=== PATIENT | male | born 1950 | race Caucasian/White ===

== ENCOUNTER 2017-08-21 09:20 | Emergency (ER) | payer MEDICARE ==
[2017-08-21] MEDS ORDERED: Ketorolac 60 MG/2 ML SDV IM ONE (10:09)
--- NOTE | 2017-08-21 10:11 | EDM.PDOC ---
ED HPI GENERAL MEDICAL PROBLEM - General Chief Complaint: Lower Extremity Injury/Pain Stated Complaint: LEFT LEG PAIN Time Seen by Provider: 08/21/17 10:10 Source of Information: Reports: Patient History Limitations: Reports: No Limitations - History of Present Illness INITIAL COMMENTS - FREE TEXT/NARRATIVE: pt tapped his knee on the table and 2 days later the knee is swollen and there is some redness on each side of the knee. Onset: Gradual Duration: Hour(s): Location: Reports: Lower Extremity, Left Associated Symptoms: Reports: No Other Symptoms left knee Pain Score (Numeric/FACES): 4 - Related Data Allergies Allergy/AdvReac Type Severity Reaction Status Date / Time Penicillins Allergy Hives Verified 08/21/17 09:45 Home Meds: Home Meds . [Unable to Verify Home Med List] 08/21/17 [History] Past Medical History Cardiovascular History: Reports: Hypertension - Past Surgical History Musculoskeletal Surgical History: Reports: Other (See Below) Other Musculoskeletal Surgeries/Procedures:: back surgery Social & Family History - Tobacco Use Smoking Status *Q: Current Every Day Smoker Years of Tobacco use: 40 Packs/Tins Daily: 0.5 - Recreational Drug Use Recreational Drug Use: No Review of Systems - Review of Systems Review Of Systems: See Below Constitutional: Reports: No Symptoms Eyes: Reports: No Symptoms Ears: Reports: No Symptoms Nose: Reports: No Symptoms Mouth/Throat: Reports: No Symptoms Respiratory: Reports: No Symptoms Cardiovascular: Reports: No Symptoms GI/Abdominal: Reports: No Symptoms Musculoskeletal: Reports: Other ( pain and swelling in the left knee. ) Skin: Reports: No Symptoms ED EXAM, GENERAL - Physical Exam Exam: See Below Free Text/Narrative:: pt has redness on each side of the knee-left. He is very tender and the knee swollen Exam Limited By: No Limitations General Appearance: Alert, Anxious, Moderate Distress Ears: Normal TMs Nose: Normal Inspection Throat/Mouth: Normal Inspection Head: Atraumatic Neck: Normal Inspection Respiratory/Chest: No Respiratory Distress Cardiovascular: Regular Rate, Rhythm Extremities: Other (left knee is swollen and has obvious fluid in it. The knee was xrayed which revealed arthritis but no acute injury. the knee was cleansed an buvocine was used 70 cc of nonbloody fluid was obtained. This was sent for cell count and culture. The was a very rare bacteria. ) Neurological: Alert Course - Vital Signs Last Recorded V/S: Last Vital Signs Temp 36.7 C 08/21/17 09:52 Pulse 73 08/21/17 09:52 Resp 15 08/21/17 09:52 BP 110/44 L 08/21/17 09:52 Pulse Ox 92 L 08/21/17 09:52 - Orders/Labs/Meds Orders: Active Orders 24 hr Category Date Time Status Knee 3V Lt [CR] Stat Exams 08/21/17 10:09 Taken CULTURE BODY FLUID + SMEAR [RM] Stat Lab 08/21/17 11:38 Ordered Labs: Laboratory Tests 08/21/17 Range/Units 11:38 Fluid Type Synovial fluid Fluid WBC 92559 /ul Fluid RBC 1440 /ul Fluid Diff Comment Left knee Fluid Mononuclear Cell 14 % Fl Polymorphonucl Cell 86 % Meds: Medications Discontinued Medications Generic Name Dose Route Start Last Admin Trade Name Freq PRN Reason Stop Dose Admin Bupivacaine HCl 10 ml 08/21/17 10:59 08/21/17 11:16 Sensorcaine-Mpf 0.25% INJECT 08/21/17 11:00 10 ml ONETIME ONE Administration Ceftriaxone Sodium 1 gm/ 0 gm 08/21/17 11:30 08/21/17 11:38 Lidocaine HCl 2.1 ml IM 08/21/17 11:31 1 inj ONETIME ONE Administration Ketorolac Tromethamine 60 mg 08/21/17 10:09 08/21/17 10:14 Toradol IM 08/21/17 10:10 60 mg ONETIME ONE Administration Methylprednisolone Sodium Succinate 40 mg 08/21/17 11:00 08/21/17 11:16 Solu-Medrol IM 08/21/17 11:01 40 mg ONETIME ONE Administration Departure - Departure Time of Disposition: 12:06 Disposition: Home, Self-Care 01 Condition: Fair Clinical Impression: Joint effusion of knee, Skin infection of right knee - Discharge Information Referrals: Kg Stewart MD [Primary Care Provider] - Forms: ED Department Discharge Care Plan Goals: moist warm packs to the left knee followed by a cool pack, keflex 500mg tid for 1 week, norco 5/325 q6h prn for pain, motrin 200mg tid, If further problems see own provider. - My Orders Last 24 Hours: My Active Orders 08/21/17 10:09 Knee 3V Lt [CR] Stat 08/21/17 11:38 CULTURE BODY FLUID + SMEAR [RM] Stat - Assessment/Plan Last 24 Hours: My Active Orders 08/21/17 10:09 Knee 3V Lt [CR] Stat 08/21/17 11:38 CULTURE BODY FLUID + SMEAR [RM] Stat
[2017-08-21] MEDS ORDERED: Bupivacaine 0.25% 10 ML SDV INJECT ONE (10:59)
[2017-08-21] MEDS ORDERED: methylPREDNISolone Sodium Succinate 40 MG/1 ML SDV IM ONE (11:00)
[2017-08-21] MEDS ORDERED: cefTRIAXone 1 GM, Lidocaine 1% 2.1 ML IM ONE ×2 (11:30)
--- NOTE | 2017-08-22 09:14 | CR ---
Knee 3V Lt CLINICAL HISTORY: Pain and swelling FINDINGS: No acute fracture or dislocation is noted. There are no osseous lesions. There is some prom inence of the intercondylar eminence. There is suprapatellar fullness. 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
== END 2017-08-21 12:40 | disposition home or self-care (01) ==
LOC: JP.ED 09:20
DX: M25.461 Effusion, right knee (principal); L08.9 Local infection of the skin and subcutaneous tissue, unspecified; Z88.0 Allergy status to penicillin; F17.210 Nicotine dependence, cigarettes, uncomplicated
CPT/HCPCS: 73562; 87070; 87077; 87186; 87205; 89050; 96372; 99284; J0696; J1885; J2920; J3490; 99283

== ENCOUNTER 2018-06-04 13:17 | Emergency (ER) | payer MEDICARE ==
[2018-06-04] MEDS ORDERED: Lidocaine 2% Jelly 10 ML Urojet MUCMEM ONE (13:43)
[2018-06-04] MEDS ORDERED: Tamsulosin 0.4 MG Cap.ER PO ONE (15:41)
--- NOTE | 2018-06-04 15:43 | EDM.PDOC ---
ED HPI GENERAL MEDICAL PROBLEM - General Chief Complaint: Genitourinary Problem Stated Complaint: UNABLE TO URINATE Time Seen by Provider: 06/04/18 15:43 Source of Information: Reports: Patient History Limitations: Reports: No Limitations - History of Present Illness INITIAL COMMENTS - FREE TEXT/NARRATIVE: pt was up all nite trying to void. He did try about every 2 hours. He arrived here with 2-3 hundred cc in the bladder Onset: Other ( started last nite. The only thing new for meds is that he is using medical [facility]. ) Duration: Hour(s): Associated Symptoms: Reports: No Other Symptoms - Related Data Allergies Allergy/AdvReac Type Severity Reaction Status Date / Time Penicillins Allergy Hives Verified 06/04/18 13:36 Home Meds: Home Meds Cyclobenzaprine [Flexeril] 06/04/18 [History] Furosemide 06/04/18 [History] Gabapentin [Neurontin] 06/04/18 [History] Losartan/Hydrochlorothiazide [Losartan-HCTZ 100-12.5 MG] 06/04/18 [History] Past Medical History Cardiovascular History: Reports: Hypertension - Past Surgical History Musculoskeletal Surgical History: Reports: Other (See Below) Other Musculoskeletal Surgeries/Procedures:: back surgery Social & Family History - Tobacco Use Smoking Status *Q: Current Every Day Smoker Years of Tobacco use: 40 Packs/Tins Daily: 0.5 ED ROS GENERAL - Review of Systems Review Of Systems: See Below Constitutional: Reports: No Symptoms HEENT: Reports: No Symptoms Respiratory: Reports: No Symptoms Cardiovascular: Reports: No Symptoms Endocrine: Reports: No Symptoms GI/Abdominal: Reports: No Symptoms : Reports: No Symptoms Musculoskeletal: Reports: Other (pt has chronic back pain. He recently started medical marajauna for his back. ) Skin: Reports: No Symptoms ED EXAM, RENAL/ - Physical Exam Exam: See Below Text/Narrative:: pt arrived unable to void. He had tried about every 2 hours during the nite. Exam Limited By: No Limitations General Appearance: Alert, Mild Distress Ears: Normal External Exam Nose: Normal Inspection Throat/Mouth: Normal Inspection GI/Abdominal: Other ( bladder scan showed 200-300cc of urine. ) (Male) Exam: Deferred Rectal (Males) Exam: Deferred Back Exam: Normal Inspection Extremities: Normal Inspection Course - Vital Signs Last Recorded V/S: Last Vital Signs Temp 36.7 C 06/04/18 13:42 Pulse 87 06/04/18 13:42 Resp 16 06/04/18 13:42 BP 111/66 06/04/18 13:42 Pulse Ox 95 06/04/18 13:42 - Orders/Labs/Meds Labs: Laboratory Tests 06/04/18 Range/Units 14:10 Urine Color Yellow Urine Appearance Clear Urine pH 6.0 (4.5-8.0) Ur Specific [place] 1.015 (1.008-1.030) Urine Protein Negative (NEGATIVE) mg/dL Urine Glucose (UA) Normal (NEGATIVE) mg/dL Urine Ketones Negative (NEGATIVE) mg/dL Urine Occult Blood Negative (NEGATIVE) Urine Nitrite Negative (NEGAITVE) Urine Bilirubin Negative (NEGATIVE) Urine Urobilinogen Normal (NORMAL) mg/dL Ur Leukocyte Esterase Negative (NEGATIVE) Urine RBC Not seen (0-5) Urine WBC Not seen (0-5) Ur Epithelial Cells Rare Amorphous Sediment Not seen Urine Bacteria Few Urine Mucus Not seen Meds: Medications Discontinued Medications Generic Name Dose Route Start Last Admin Trade Name Xiao PRN Reason Stop Dose Admin Lidocaine HCl 10 ml 06/04/18 13:43 06/04/18 14:10 Xylocaine 2% Jelly MUCMEM 06/04/18 13:44 10 ml ONETIME ONE Administration Tamsulosin HCl 0.4 mg 06/04/18 15:41 Flomax PO 06/04/18 15:42 ONETIME ONE - Re-Assessments/Exams Free Text/Narrative Re-Assessment/Exam: 06/04/18 15:47 araya cath was inserted without difficulty. His urine did not show infectioni Departure - Departure Time of Disposition: 15:40 Disposition: Home, Self-Care 01 Condition: Fair Clinical Impression: Urinary retention - Discharge Information Referrals: Kg Stewart MD [Primary Care Provider] - Forms: ED Department Discharge Care Plan Goals: leg bag, push fluids, flomax .4 1 tab daily. see regular provider Tuesday to have the araya removed
== END 2018-06-04 16:03 | disposition home or self-care (01) ==
LOC: JP.ED 13:17
DX: R33.9 Retention of urine, unspecified (principal); F17.210 Nicotine dependence, cigarettes, uncomplicated; I10 Essential (primary) hypertension; Z88.0 Allergy status to penicillin; Z79.899 Other long term (current) drug therapy
CPT/HCPCS: 51702; 51798; 81001; 99283; A9270

== ENCOUNTER 2019-01-16 11:26 | Emergency (ER) | payer MEDICARE ==
[2019-01-16] MEDS ORDERED: LORazepam 1 MG Tab PO ONE ×2 (12:20→13:20)
--- NOTE | 2019-01-16 12:22 | EDM.PDOCBH ---
ED HPI GENERAL MEDICAL PROBLEM - General Chief Complaint: Gastrointestinal Problem Stated Complaint: HAS NOT EATEN FOR 5 DAYS Time Seen by Provider: 01/16/19 12:10 Source of Information: Reports: Patient, RN Notes Reviewed History Limitations: Reports: Intoxication - History of Present Illness INITIAL COMMENTS - FREE TEXT/NARRATIVE: 68-year-old gentleman presents emergency department today plaint of alcohol withdrawal. He he last consumed alcohol with shots of whiskey and beer this morning at 3 AM he would like to quit drinking he would like to go through withdrawal but he does admit he needs help he has done it a couple of times in the past without being admitted. At this time he has no other complaints, denies any auditory or visual hallucinations denies any seizures Abdomen Pain Score (Numeric/FACES): 4 - Related Data Allergies Allergy/AdvReac Type Severity Reaction Status Date / Time Penicillins Allergy Hives Verified 06/04/18 13:36 Home Meds: Home Meds Gabapentin [Neurontin] 900 mg PO TID 06/04/18 [History] Losartan/Hydrochlorothiazide [Losartan-HCTZ 100-12.5 MG] 1 tab PO DAILY [History] Albuterol [Ventolin HFA] 2 puff INH ASDIRECTED PRN 01/16/19 [History] Aspirin [Ecotrin EC] 325 mg PO DAILY 01/16/19 [History] Furosemide 40 mg PO DAILY 01/16/19 [History] Tamsulosin HCl 0.4 mg PO DAILY 01/16/19 [History] Varenicline Tartrate [Chantix] 1 tab PO ASDIRECTED 01/16/19 [History] Past Medical History HEENT History: Reports: Cataract Cardiovascular History: Reports: Hypertension Respiratory History: Reports: COPD Genitourinary History: Reports: BPH, Chronic Renal Insuffiency, Renal Calculus Musculoskeletal History: Reports: Back Pain, Chronic Neurological History: Reports: Neuropathy, Peripheral Psychiatric History: Reports: Addiction, Depression Hematologic History: Reports: B12 Deficiency, Folic Acid, Other (See Below) Other Hematologic History: thrombocytopenia - Past Surgical History GI Surgical History: Reports: Hernia, Abdominal Neurological Surgical History: Reports: Spinal Fusion Musculoskeletal Surgical History: Reports: Arthroscopic Knee, Other (See Below) Other Musculoskeletal Surgeries/Procedures:: back surgery Social & Family History - Tobacco Use Smoking Status *Q: Current Every Day Smoker Years of Tobacco use: 40 Packs/Tins Daily: 0.5 - Caffeine Use Caffeine Use: Reports: None - Alcohol Use Days Per Week of Alcohol Use: 7 Number of Drinks Per Day: 4 Total Drinks Per Week: 28 - Recreational Drug Use Recreational Drug Use: Yes Recreational Drug Type: Reports: Marijuana/Hashish ED ROS GENERAL - Review of Systems Review Of Systems: See Below Constitutional: Reports: No Symptoms HEENT: Reports: No Symptoms Respiratory: Reports: No Symptoms Cardiovascular: Reports: No Symptoms GI/Abdominal: Reports: No Symptoms Neurological: Reports: No Symptoms Psychiatric: Denies: Hallucinations ED EXAM, BEHAVIORAL HEALTH - Physical Exam Exam: See Below Exam Limited By: No Limitations General Appearance: Alert, WD/WN, No Apparent Distress Respiratory/Chest: No Respiratory Distress, Lungs Clear, Normal Breath Sounds, No Accessory Muscle Use, Chest Non-Tender Cardiovascular: Regular Rate, Rhythm, No Murmur GI/Abdominal: Soft, Non-Tender COURSE, BEHAVIORAL HEALTH COMP - Course Vital Signs: Last Vital Signs Temp 95.5 F 01/16/19 12:00 Pulse 53 L 01/16/19 12:07 Resp 16 01/16/19 12:07 BP 104/61 01/16/19 12:07 Pulse Ox 97 01/16/19 12:07 Orders, Labs, Meds: Laboratory Tests 01/16/19 01/16/19 01/16/19 Range/Units 12:29 12:29 12:29 WBC 4.3 L (4.5-11.0) K/uL RBC 3.65 L (4.30-5.90) M/uL Hgb 12.5 D (12.0-15.0) g/dL Hct 37.2 L (40.0-54.0) % MCV 102 H (80-98) fL MCH 34 H (27-31) pg MCHC 34 (32-36) % Plt Count 126 L (150-400) K/uL Neut % (Auto) 41 (36-66) % Lymph % (Auto) 40 (24-44) % [place] % (Auto) 15 H (2-6) % Eos % (Auto) 3 (2-4) % Baso % (Auto) 1 (0-1) % Sodium 131 L (140-148) mmol/L Potassium 3.9 (3.6-5.2) mmol/L Chloride 95 L (100-108) mmol/L Carbon Dioxide 22 (21-32) mmol/L Anion Gap 17.9 H (5.0-14.0) mmol/L BUN 26 H (7-18) mg/dL Creatinine 1.7 H (0.8-1.3) mg/dL Est Cr Clr Drug Dosing 52.48 mL/min Estimated GFR (MDRD) 41 L (>60) Glucose 102 (74-106) mg/dL Calcium 8.2 L (8.5-10.1) mg/dL Total Bilirubin 0.4 (0.2-1.0) mg/dL AST 49 H (15-37) U/L ALT 36 (12-78) U/L Alkaline Phosphatase 168 H (46-116) U/L Total Protein 6.8 (6.4-8.2) g/dL Albumin 3.2 L (3.4-5.0) g/dL Globulin 3.6 H (2.3-3.5) g/dL Albumin/Globulin Ratio 0.9 L (1.2-2.2) Urine Opiates Screen (NEGATIVE) Ur Oxycodone Screen (NEGATIVE) Urine Methadone Screen (NEGATIVE) Ur Propoxyphene Screen (NEGATIVE) Ur Barbiturates Screen (NEGATIVE) Ur Tricyclics Screen (NEGATIVE) Ur Phencyclidine Scrn (NEGATIVE) Ur Amphetamine Screen (NEGATIVE) U Methamphetamines Scrn (NEGATIVE) Urine MDMA Screen (NEGATIVE) U Benzodiazepines Scrn (NEGATIVE) U Cocaine Metab Screen (NEGATIVE) U Marijuana (THC) Screen (NEGATIVE) Ethyl Alcohol 240 mg/dL 01/16/19 Range/Units 13:19 WBC (4.5-11.0) K/uL RBC (4.30-5.90) M/uL Hgb (12.0-15.0) g/dL Hct (40.0-54.0) % MCV (80-98) fL MCH (27-31) pg MCHC (32-36) % Plt Count (150-400) K/uL Neut % (Auto) (36-66) % Lymph % (Auto) (24-44) % [place] % (Auto) (2-6) % Eos % (Auto) (2-4) % Baso % (Auto) (0-1) % Sodium (140-148) mmol/L Potassium (3.6-5.2) mmol/L Chloride (100-108) mmol/L Carbon Dioxide (21-32) mmol/L Anion Gap (5.0-14.0) mmol/L BUN (7-18) mg/dL Creatinine (0.8-1.3) mg/dL Est Cr Clr Drug Dosing mL/min Estimated GFR (MDRD) (>60) Glucose (74-106) mg/dL Calcium (8.5-10.1) mg/dL Total Bilirubin (0.2-1.0) mg/dL AST (15-37) U/L ALT (12-78) U/L Alkaline Phosphatase (46-116) U/L Total Protein (6.4-8.2) g/dL Albumin (3.4-5.0) g/dL Globulin (2.3-3.5) g/dL Albumin/Globulin Ratio (1.2-2.2) Urine Opiates Screen Negative (NEGATIVE) Ur Oxycodone Screen Negative (NEGATIVE) Urine Methadone Screen Negative (NEGATIVE) Ur Propoxyphene Screen Negative (NEGATIVE) Ur Barbiturates Screen Negative (NEGATIVE) Ur Tricyclics Screen Negative (NEGATIVE) Ur Phencyclidine Scrn Negative (NEGATIVE) Ur Amphetamine Screen Negative (NEGATIVE) U Methamphetamines Scrn Negative (NEGATIVE) Urine MDMA Screen Negative (NEGATIVE) U Benzodiazepines Scrn Negative (NEGATIVE) U Cocaine Metab Screen Negative (NEGATIVE) U Marijuana (THC) Screen Presumptive positive H (NEGATIVE) Ethyl Alcohol mg/dL Medications Discontinued Medications Generic Name Dose Route Start Last Admin Trade Name Freq PRN Reason Stop Dose Admin Lorazepam 1 mg 01/16/19 12:20 01/16/19 12:31 Ativan PO 01/16/19 12:21 1 mg ONETIME ONE Administration Lorazepam 2 mg 01/16/19 13:20 01/16/19 13:28 Ativan PO 01/16/19 13:21 2 mg ONETIME ONE Administration Departure - Departure Time of Disposition: 13:56 Disposition: DC/Tfer to Inpt Rehab Fac 62 Condition: Fair Clinical Impression: ETOH abuse - Discharge Information Referrals: PCP,None [Primary Care Provider] - Forms: ED Department Discharge Additional Instructions: Please report to [facility] for further treatment Sepsis Event Note - Evaluation Sepsis Screening Result: No Definite Risk - Focused Exam Vital Signs: Vital Signs Temp Pulse Resp BP Pulse Ox 12/10/19 12:07 53 L 16 104/61 97 01/16/19 12:00 95.5 F 68 18 119/60 97 01/16/19 11:40 95.5 F 68 18 119/60 97 Date Exam was Performed: 01/16/19 Time Exam was Performed: 13:54 - Assessment/Plan Plan: Assessment Acuity = acute Site and laterality = alcohol abuse and intoxication Etiology = EtOH Manifestations = none Location of injury = Home Lab values = platelets low at 126 consistent with thrombocytopenia, sodium low at 131 consistent hyponatremia creatinine elevated 1.7 consistent chronic renal failure stage T3a albumin low at 3.2 consistent with hypoalbuminemia alcohol level at 240 consistent with intoxication urine drug screen positive for cannabis Plan He did have interview with [place] detoxification facility felt he was appropriate patient therefore he will be discharged to [facility] for further treatment This note was dictated using [employer] voice recognition software please call with any questions on syntax or grammar.
== END 2019-01-16 14:02 ==
LOC: JP.ED 11:26
DX: F10.239 Alcohol dependence with withdrawal, unspecified (principal); F10.229 Alcohol dependence with intoxication, unspecified; Y90.8 Blood alcohol level of 240 mg/100 ml or more; F17.210 Nicotine dependence, cigarettes, uncomplicated; I12.9 Hypertensive chronic kidney disease with stage 1 through stage 4 chronic kidney disease, or unspecified chronic kidney disease; N18.9 Chronic kidney disease, unspecified; Z79.899 Other long term (current) drug therapy; Z88.0 Allergy status to penicillin
CPT/HCPCS: 36415; 80053; 80305; 85025; 99284; 99285; A9270; G0480

== ENCOUNTER 2019-02-08 09:56 | Emergency (ER) | payer MEDICARE ==
[2019-02-08] MEDS ORDERED: Sodium Chloride 0.9% 10 ML Syringe FLUSH PRN (10:38)
[2019-02-08] MEDS ORDERED: MVI, Adult with Vitamin K 10 ML, Thiamine 200 MG, Folic Acid 1 MG, Magnesium Sulfate 2 ... IV ONE ×10 (10:39→11:15)
[2019-02-08] MEDS ORDERED: Ondansetron 4 MG/2 ML SDV IVPUSH ONE (10:41)
[2019-02-08] MEDS ORDERED: Albuterol/Ipratropium 3.0-0.5 MG/3 ML Neb Soln NEB ONE (10:43)
--- NOTE | 2019-02-08 10:43 | EDM.PDOC ---
ED HPI GENERAL MEDICAL PROBLEM - General Chief Complaint: Respiratory Problem Stated Complaint: S.O.B. - MEDICAL EVAL Time Seen by Provider: 02/08/19 10:32 Source of Information: Reports: Patient, RN Notes Reviewed History Limitations: Reports: No Limitations - History of Present Illness INITIAL COMMENTS - FREE TEXT/NARRATIVE: 69-year-old gentleman presents emergency department today complaint of shortness of breath as well as wanting alcohol detox. He is a known history of chronic obstructive pulmonary disease has smoked 2 packs a day for several years now was cut down to half pack per day is consuming a pint or more of whiskey per day last drink this morning. Admits to having some chest pain last night around 10 block does feel nauseated and is tremulous Feet Pain Score (Numeric/FACES): 5 - Related Data Allergies Allergy/AdvReac Type Severity Reaction Status Date / Time Penicillins Allergy Hives Verified 02/08/19 10:10 Home Meds: Home Meds Gabapentin [Neurontin] 900 mg PO TID 06/04/18 [History] Losartan/Hydrochlorothiazide [Losartan-HCTZ 100-12.5 MG] 1 tab PO DAILY [History] Albuterol [Ventolin HFA] 2 puff INH ASDIRECTED PRN 01/16/19 [History] Aspirin [Ecotrin EC] 325 mg PO DAILY 01/16/19 [History] Furosemide 40 mg PO DAILY PRN 01/16/19 [History] Tamsulosin HCl 0.4 mg PO DAILY 01/16/19 [History] Varenicline Tartrate [Chantix] 1 tab PO ASDIRECTED 01/16/19 [History] Past Medical History HEENT History: Reports: Cataract Cardiovascular History: Reports: Hypertension Respiratory History: Reports: COPD Genitourinary History: Reports: BPH, Chronic Renal Insuffiency, Renal Calculus Musculoskeletal History: Reports: Back Pain, Chronic Neurological History: Reports: Neuropathy, Peripheral Psychiatric History: Reports: Addiction, Depression Hematologic History: Reports: B12 Deficiency, Folic Acid, Other (See Below) Other Hematologic History: thrombocytopenia - Past Surgical History GI Surgical History: Reports: Hernia, Abdominal Neurological Surgical History: Reports: Spinal Fusion Musculoskeletal Surgical History: Reports: Arthroscopic Knee, Other (See Below) Other Musculoskeletal Surgeries/Procedures:: back surgery Social & Family History - Tobacco Use Smoking Status *Q: Light Tobacco Smoker Years of Tobacco use: 53 Packs/Tins Daily: 0.5 Tobacco Use Comment: patient on chantix and working on quitting. - Caffeine Use Caffeine Use: Reports: None - Alcohol Use Days Per Week of Alcohol Use: 7 Number of Drinks Per Day: 8 Total Drinks Per Week: 56 - Recreational Drug Use Recreational Drug Use: Yes Recreational Drug Type: Reports: Marijuana/Hashish ED ROS GENERAL - Review of Systems Review Of Systems: See Below Constitutional: Denies: Fever HEENT: Reports: No Symptoms Respiratory: Reports: Shortness of Breath. Denies: Cough, Sputum Cardiovascular: Reports: Dyspnea on Exertion GI/Abdominal: Reports: Nausea : Reports: No Symptoms Musculoskeletal: Reports: No Symptoms Skin: Reports: No Symptoms Neurological: Reports: No Symptoms ED EXAM, GENERAL - Physical Exam Exam: See Below Exam Limited By: No Limitations General Appearance: Alert, WD/WN, No Apparent Distress Eye Exam: Bilateral Eye: Normal Inspection, PERRL Ears: Normal External Exam, Normal Canal, Hearing Grossly Normal, Normal TMs Nose: Normal Inspection, Normal Mucosa, No Blood Throat/Mouth: Normal Inspection, Normal Lips, Normal Teeth, Normal Gums, Normal Oropharynx, Normal Voice, No Airway Compromise Head: Atraumatic, Normocephalic Neck: Normal Inspection, Supple, Non-Tender, Full Range of Motion Respiratory/Chest: No Accessory Muscle Use, Decreased Breath Sounds Cardiovascular: Regular Rate, Rhythm, No Murmur GI/Abdominal: Soft, Non-Tender Extremities: No Pedal Edema Course - Vital Signs Last Recorded V/S: Last Vital Signs Temp 95.9 F 02/08/19 10:13 Pulse 97 02/08/19 10:13 Resp 20 02/08/19 10:13 BP 118/63 02/08/19 10:13 Pulse Ox 96 02/08/19 10:13 - Orders/Labs/Meds Orders: Active Orders 24 hr Category Date Time Status Peripheral IV Care [RC] . DIRECTED Care 02/08/19 10:39 Active RT Aerosol Therapy [RC] ASDIRECTED Care 02/08/19 10:43 Active Sodium Chloride 0.9% [Saline Flush] Med 02/08/19 10:38 Active 10 ml FLUSH ASDIRECTED PRN Peripheral IV Insertion Adult [OM.PC] Urgent Oth 02/08/19 10:38 Ordered Medication Orders Sodium Chloride (Saline Flush) 10 ml FLUSH ASDIRECTED PRN PRN Reason: Keep Vein Open Last Admin: 02/08/19 11:17 Dose: 10 ml Labs: Laboratory Tests 02/08/19 02/08/19 02/08/19 Range/Units 10:54 10:54 10:54 WBC 5.7 (4.5-11.0) K/uL RBC 3.71 L (4.30-5.90) M/uL Hgb 12.5 (12.0-15.0) g/dL Hct 38.1 L (40.0-54.0) % MCV 103 H (80-98) fL MCH 34 H (27-31) pg MCHC 33 (32-36) % Plt Count 73 L (150-400) K/uL Neut % (Auto) 51 (36-66) % Lymph % (Auto) 31 (24-44) % Rowan % (Auto) 13 H (2-6) % Eos % (Auto) 5 H (2-4) % Baso % (Auto) 0 (0-1) % Sodium 136 L (140-148) mmol/L Potassium 3.9 (3.6-5.2) mmol/L Chloride 96 L (100-108) mmol/L Carbon Dioxide 23 (21-32) mmol/L Anion Gap 20.9 H (5.0-14.0) mmol/L BUN 20 H (7-18) mg/dL Creatinine 1.3 (0.8-1.3) mg/dL Est Cr Clr Drug Dosing 67.70 mL/min Estimated GFR (MDRD) 55 L (>60) Glucose 75 (74-106) mg/dL Calcium 9.1 (8.5-10.1) mg/dL Total Bilirubin 1.2 H D (0.2-1.0) mg/dL AST 107 H D (15-37) U/L ALT 68 D (12-78) U/L Alkaline Phosphatase 192 H (46-116) U/L Troponin I (0.000-0.056) ng/mL Total Protein 7.0 (6.4-8.2) g/dL Albumin 3.3 L (3.4-5.0) g/dL Globulin 3.7 H (2.3-3.5) g/dL Albumin/Globulin Ratio 0.9 L (1.2-2.2) Urine Color (YELLOW) Urine Appearance (CLEAR) Urine pH (5.0-8.0) Ur Specific Maynard (1.008-1.030) Urine Protein (NEGATIVE) mg/dL Urine Glucose (UA) (NEGATIVE) mg/dL Urine Ketones (NEGATIVE) mg/dL Urine Occult Blood (NEGATIVE) Urine Nitrite (NEGATIVE) Urine Bilirubin (NEGATIVE) Urine Urobilinogen (0.2-1.0) EU/dL Ur Leukocyte Esterase (NEGATIVE) Urine RBC (0-5) Urine WBC (0-5) Ur Epithelial Cells Amorphous Sediment Urine Bacteria Urine Mucus Urine Other Urine Opiates Screen (NEGATIVE) Ur Oxycodone Screen (NEGATIVE) Urine Methadone Screen (NEGATIVE) Ur Propoxyphene Screen (NEGATIVE) Ur Barbiturates Screen (NEGATIVE) Ur Tricyclics Screen (NEGATIVE) Ur Phencyclidine Scrn (NEGATIVE) Ur Amphetamine Screen (NEGATIVE) U Methamphetamines Scrn (NEGATIVE) Urine MDMA Screen (NEGATIVE) U Benzodiazepines Scrn (NEGATIVE) U Cocaine Metab Screen (NEGATIVE) U Marijuana (THC) Screen (NEGATIVE) Ethyl Alcohol 121 mg/dL 02/08/19 02/08/19 02/08/19 Range/Units 10:54 11:27 11:27 WBC (4.5-11.0) K/uL RBC (4.30-5.90) M/uL Hgb (12.0-15.0) g/dL Hct (40.0-54.0) % MCV (80-98) fL MCH (27-31) pg MCHC (32-36) % Plt Count (150-400) K/uL Neut % (Auto) (36-66) % Lymph % (Auto) (24-44) % Rowan % (Auto) (2-6) % Eos % (Auto) (2-4) % Baso % (Auto) (0-1) % Sodium (140-148) mmol/L Potassium (3.6-5.2) mmol/L Chloride (100-108) mmol/L Carbon Dioxide (21-32) mmol/L Anion Gap (5.0-14.0) mmol/L BUN (7-18) mg/dL Creatinine (0.8-1.3) mg/dL Est Cr Clr Drug Dosing mL/min Estimated GFR (MDRD) (>60) Glucose (74-106) mg/dL Calcium (8.5-10.1) mg/dL Total Bilirubin (0.2-1.0) mg/dL AST (15-37) U/L ALT (12-78) U/L Alkaline Phosphatase (46-116) U/L Troponin I < 0.017 (0.000-0.056) ng/mL Total Protein (6.4-8.2) g/dL Albumin (3.4-5.0) g/dL Globulin (2.3-3.5) g/dL Albumin/Globulin Ratio (1.2-2.2) Urine Color Yellow (YELLOW) Urine Appearance Clear (CLEAR) Urine pH 6.0 (5.0-8.0) Ur Specific Maynard 1.015 (1.008-1.030) Urine Protein Trace H (NEGATIVE) mg/dL Urine Glucose (UA) Negative (NEGATIVE) mg/dL Urine Ketones 15 H (NEGATIVE) mg/dL Urine Occult Blood Trace-intact H (NEGATIVE) Urine Nitrite Negative (NEGATIVE) Urine Bilirubin Moderate H (NEGATIVE) Urine Urobilinogen 4.0 H (0.2-1.0) EU/dL Ur Leukocyte Esterase Negative (NEGATIVE) Urine RBC 0-5 (0-5) Urine WBC 0-5 (0-5) Ur Epithelial Cells Not seen Amorphous Sediment Not seen Urine Bacteria Not seen Urine Mucus Not seen Urine Other See note Urine Opiates Screen Negative (NEGATIVE) Ur Oxycodone Screen Negative (NEGATIVE) Urine Methadone Screen Negative (NEGATIVE) Ur Propoxyphene Screen Negative (NEGATIVE) Ur Barbiturates Screen Negative (NEGATIVE) Ur Tricyclics Screen Negative (NEGATIVE) Ur Phencyclidine Scrn Negative (NEGATIVE) Ur Amphetamine Screen Negative (NEGATIVE) U Methamphetamines Scrn Negative (NEGATIVE) Urine MDMA Screen Negative (NEGATIVE) U Benzodiazepines Scrn Presumptive positive H (NEGATIVE) U Cocaine Metab Screen Negative (NEGATIVE) U Marijuana (THC) Screen Presumptive positive H (NEGATIVE) Ethyl Alcohol mg/dL Meds: Medications Generic Name Dose Route Start Last Admin Trade Name Freq PRN Reason Stop Dose Admin Sodium Chloride 10 ml 02/08/19 10:38 02/08/19 11:17 Saline Flush FLUSH 10 ml ASDIRECTED PRN Administration Keep Vein Open Discontinued Medications Generic Name Dose Route Start Last Admin Trade Name Freq PRN Reason Stop Dose Admin Albuterol/Ipratropium 3 ml 02/08/19 10:43 02/08/19 11:05 Duoneb 3.0-0.5 Mg/3 Ml NEB 02/08/19 10:44 3 ml ONETIME ONE Administration Multivitamins/Minerals 10 ml/ 1,016.2 mls @ 999 mls/hr 02/08/19 11:15 11:26 Thiamine HCl 200 mg/ Folic IV 02/08/19 12:16 500 mls/hr Acid 1 mg/ Magnesium Sulfate 2 ONETIME ONE Administration gm/ Dextrose/Lactated Ringer' s Lorazepam 1 mg 02/08/19 11:56 02/08/19 12:18 Ativan IVPUSH 02/08/19 11:57 1 mg ONETIME ONE Administration Ondansetron HCl 4 mg 02/08/19 10:41 02/08/19 11:17 Zofran IVPUSH 02/08/19 10:42 4 mg ONETIME ONE Administration Departure - Departure Time of Disposition: 12:51 Disposition: DC/Tfer to Inpt Rehab Fac 62 Condition: Poor Clinical Impression: ETOH abuse - Discharge Information Instructions: Alcohol Use Disorder Referrals: Liliam Kinney CAN TECHNICIAN [Primary Care Provider] - Forms: ED Department Discharge Additional Instructions: Please report to [facility] for detox[facility] Sepsis Event Note - Evaluation Sepsis Screening Result: No Definite Risk - Focused Exam Vital Signs: Vital Signs Temp Pulse Resp BP Pulse Ox 02/08/19 10:13 95.9 F 97 20 118/63 96 02/08/19 10:10 95.9 F 97 20 118/63 96 Date Exam was Performed: 02/08/19 Time Exam was Performed: 12:50 - My Orders Last 24 Hours: My Active Orders 02/08/19 10:38 Sodium Chloride 0.9% [Saline Flush] 10 ml FLUSH ASDIRECTED PRN Peripheral IV Insertion Adult [OM.PC] Urgent 02/08/19 10:39 Peripheral IV Care [RC] . DIRECTED 02/08/19 10:43 RT Aerosol Therapy [RC] ASDIRECTED - Assessment/Plan Last 24 Hours: My Active Orders 02/08/19 10:38 Sodium Chloride 0.9% [Saline Flush] 10 ml FLUSH ASDIRECTED PRN Peripheral IV Insertion Adult [OM.PC] Urgent 02/08/19 10:39 Peripheral IV Care [RC] . DIRECTED 02/08/19 10:43 RT Aerosol Therapy [RC] ASDIRECTED Plan: Assessment Acuity = acute Site and laterality = alcohol abuse and intoxication Etiology = EtOH Manifestations = elevated liver enzymes Location of injury = Home Lab values = sodium low at 136 consistent hyponatremia, bilirubin elevated 1.2 consistent hyperbilirubinemia, AST elevated 107 consistent with elevated liver enzymes troponin was negative urinalysis shows moderate amount of bilirubin urine drug screen positive for benzodiazepines and cannabis alcohol level was 121 CBC unremarkable chest x-ray shows no acute process Plan He was accepted at [place] detoxification facility he is willing to go for treatment he will be discharged to the [facility] [employer] This note was dictated using natue voice recognition software please call with any questions on syntax or grammar.
--- NOTE | 2019-02-08 11:42 | CRLCR ---
Indication: Shortness of breath. Technique: Chest 2 views Comparison: None Findings: Cardiomediastinal silhouette is unremarkable. No focal lung consolidation, pleural effusion or pneumothorax. Impression: No acute cardiopulmonary abnormality. Dictated by Kg Bernstein MD @ Feb 08 2019 11:40AM Signed by Dr. Kg Bernstein @ Feb 08 2019 11:41AM
[2019-02-08] MEDS ORDERED: LORazepam 2 MG/ML SDV IVPUSH ONE (11:56)
== END 2019-02-08 13:21 ==
LOC: JP.ED 09:56
DX: F10.229 Alcohol dependence with intoxication, unspecified (principal); R74.8 Abnormal levels of other serum enzymes; J44.9 Chronic obstructive pulmonary disease, unspecified; I12.9 Hypertensive chronic kidney disease with stage 1 through stage 4 chronic kidney disease, or unspecified chronic kidney disease; N18.9 Chronic kidney disease, unspecified; F17.210 Nicotine dependence, cigarettes, uncomplicated; Z98.1 Arthrodesis status; Z88.0 Allergy status to penicillin; Z79.82 Long term (current) use of aspirin; Z79.899 Other long term (current) drug therapy; Y90.6 Blood alcohol level of 120-199 mg/100 ml
CPT/HCPCS: 36415; 71046; 80053; 80305-QW; 81001; 84484; 85025; 94640; 96365; 96366; 96375; 99284; 99285-25; G0480; J2060; J2405; J3411; J3475; J3490; J7121; J7620-GY

== ENCOUNTER 2019-02-09 10:09 | Emergency (ER) | payer MEDICARE ==
[2019-02-09] MEDS ORDERED: Lactated Ringers 1,000 ML IV ONE (10:13)
--- NOTE | 2019-02-09 10:19 | EDM.PDOC ---
ED HPI GENERAL MEDICAL PROBLEM - General Chief Complaint: Cardiovascular Problem Stated Complaint: MED [facility]IA [facility] Time Seen by Provider: 02/09/19 10:13 Source of Information: Reports: Patient, EMS, Old Records, RN History Limitations: Reports: No Limitations - History of Present Illness INITIAL COMMENTS - FREE TEXT/NARRATIVE: 69 yo male was screened here yesterday and then sent to [facility] for detox. Today was light-headed and his BP low. Was sent for this via EMS to the ER. No GI bleed, diarrhea, or vomiting. BP meds held by [facility] this morning due to the low BP. Onset: Today Onset Date: 02/09/19 Duration: Hour(s): (not sure), Improving (feels better lying) Location: Reports: Other (no pain reported) Quality: Reports: Other (no pain) Severity: Moderate Improves with: Reports: Other (lying) Worsens with: Reports: Other (standing) Context: Reports: Other (see HPI) Associated Symptoms: Reports: Malaise, Other (light-headed). Denies: Cough, Fever/Chills, Seizure, Shortness of Breath Treatments [employer]: Reports: Other (see below) (IV of NS initiated by EMS) - Related Data Allergies Allergy/AdvReac Type Severity Reaction Status Date / Time Penicillins Allergy Hives Verified 02/08/19 10:10 Home Meds: Home Meds Gabapentin [Neurontin] 900 mg PO TID 06/04/18 [History] Losartan/Hydrochlorothiazide [Losartan-HCTZ 100-12.5 MG] 1 tab PO DAILY [History] Albuterol [Ventolin HFA] 2 puff INH ASDIRECTED PRN 01/16/19 [History] Aspirin [Ecotrin EC] 325 mg PO DAILY 01/16/19 [History] Furosemide 40 mg PO DAILY PRN 01/16/19 [History] Tamsulosin HCl 0.4 mg PO DAILY 01/16/19 [History] Varenicline Tartrate [Chantix] 1 tab PO ASDIRECTED 01/16/19 [History] Past Medical History HEENT History: Reports: Cataract Cardiovascular History: Reports: Hypertension Respiratory History: Reports: COPD Genitourinary History: Reports: BPH, Chronic Renal Insuffiency, Renal Calculus Musculoskeletal History: Reports: Back Pain, Chronic Neurological History: Reports: Neuropathy, Peripheral Psychiatric History: Reports: Addiction, Depression Hematologic History: Reports: B12 Deficiency, Folic Acid, Other (See Below) Other Hematologic History: thrombocytopenia - Past Surgical History GI Surgical History: Reports: Hernia, Abdominal Neurological Surgical History: Reports: Spinal Fusion Musculoskeletal Surgical History: Reports: Arthroscopic Knee, Other (See Below) Other Musculoskeletal Surgeries/Procedures:: back surgery Social & Family History - Caffeine Use Caffeine Use: Reports: None ED ROS GENERAL - Review of Systems Review Of Systems: See Below Constitutional: Reports: No Symptoms HEENT: Reports: No Symptoms Respiratory: Reports: No Symptoms Cardiovascular: Reports: Lightheadedness Endocrine: Reports: No Symptoms GI/Abdominal: Reports: No Symptoms : Reports: No Symptoms Musculoskeletal: Reports: No Symptoms Skin: Reports: No Symptoms Neurological: Reports: No Symptoms Psychiatric: Reports: No Symptoms ED EXAM, GENERAL - Physical Exam Exam: See Below Exam Limited By: No Limitations General Appearance: Alert, WD/WN, No Apparent Distress Eye Exam: Bilateral Eye: Normal Inspection Ears: Normal External Exam, Normal Canal, Hearing Grossly Normal Ear Exam: Bilateral Ear: Auricle Normal, Canal Normal Nose: Normal Inspection, No Blood Throat/Mouth: Normal Inspection, Normal Lips, Normal Voice, No Airway Compromise Head: Atraumatic, Normocephalic Neck: Normal Inspection Respiratory/Chest: No Respiratory Distress, Lungs Clear, Normal Breath Sounds, No Accessory Muscle Use Cardiovascular: Regular Rate, Rhythm, No Edema GI/Abdominal: Normal Bowel Sounds, Soft, Non-Tender, No Distention Back Exam: Normal Inspection. No: CVA Tenderness (R), CVA Tenderness (L) Extremities: Normal Inspection, Normal Range of Motion, Non-Tender, No Pedal Edema. No: Pedal Edema Neurological: Alert, Oriented, CN II-XII Intact, Normal Cognition, No Motor/ Sensory Deficits Psychiatric: Normal Affect, Normal Mood Skin Exam: Warm, Dry, Intact, Normal Color, No Rash Course - Vital Signs Last Recorded V/S: Last Vital Signs Temp 36.8 C 02/09/19 10:11 Pulse 59 L 02/09/19 10:55 Resp 18 02/09/19 10:11 BP 107/59 L 02/09/19 10:55 Pulse Ox 98 02/09/19 10:55 - Orders/Labs/Meds Meds: Medications Discontinued Medications Generic Name Dose Route Start Last Admin Trade Name Freq PRN Reason Stop Dose Admin Lactated Ringer's 1,000 mls @ 1,000 mls/hr 02/09/19 10:13 02/09/19 10:25 Ringers, Lactated IV 02/09/19 11:12 1,000 mls/hr BOLUS ONE Administration Departure - Departure Time of Disposition: 11:45 Disposition: Home, Self-Care 01 Condition: Fair Clinical Impression: Mild dehydration Low blood pressure Qualifiers: Hypotension type: orthostatic hypotension Qualified Code(s): I95.1 - Orthostatic hypotension Instructions: Dehydration, Elderly, [id number] Referrals: PCP,None [Primary Care Provider] - Forms: ED Department Discharge Additional Instructions: Hold Losartan/HCTZ today, restart tomorrow giving only 1/2 a tablet daily until he is rechecked by his provider. Return as needed. Sepsis Event Note - Focused Exam Vital Signs: Vital Signs Temp Pulse Resp BP Pulse Ox 02/09/19 10:55 59 L 107/59 L 98 02/09/19 10:11 36.8 C 78 18 107/59 L 89 L Date Exam was Performed: 02/09/19 Time Exam was Performed: 11:22
== END 2019-02-09 12:20 | disposition home or self-care (01) ==
LOC: JP.ED 10:09
DX: I95.1 Orthostatic hypotension (principal); E86.0 Dehydration; I12.9 Hypertensive chronic kidney disease with stage 1 through stage 4 chronic kidney disease, or unspecified chronic kidney disease; N18.9 Chronic kidney disease, unspecified; Z79.82 Long term (current) use of aspirin; Z79.899 Other long term (current) drug therapy; Z98.1 Arthrodesis status; Z88.0 Allergy status to penicillin
CPT/HCPCS: 96360; 99283; 99284; J7120

== ENCOUNTER 2024-07-26 19:04 | Emergency (ER) | payer MEDICARE ==
[2024-07-26 20:47] LABS: BASOPHILS ABSOLUTE AUTO 0.05 K/uL (0.00-0.10); BASOPHILS PERCENT AUTO 0.9 % (0.1-1.3); EOSINOPHILS ABSOLUTE AUTO 0.29 K/uL (0.00-0.40); EOSINOPHILS PERCENT AUTO 5.3 % (0.0-5.4); HEMOGLOBIN 10.3 g/dL (12.9-16.9); IMMATURE GRAN ABSOLUTE AUTO 0.02 K/uL (0.00-0.23); IMMATURE GRAN PERCENT AUTO 0.4 % (0.0-0.7); LYMPHOCYTES ABSOLUTE AUTO 1.35 K/uL (0.8-3.3); LYMPHOCYTES PERCENT AUTO 24.6 % (11.4-47.7); MEAN CORPUSCULAR HEMOGLOBIN 33.3 pg (31.6-35.5); MEAN CORPUSCULAR HGB CONC 34.3 g/dL (31.6-35.5); MEAN CORPUSCULAR VOLUME 97.1 fL (81.4-99.0); MONOCYTES ABSOLUTE AUTO 0.66 K/uL (0.20-0.90); NEUTROPHILS ABSOLUTE AUTO 3.11 K/uL (1.0-7.6); NEUTROPHILS PERCENT AUTO 56.8 % (40.0-78.1); PLATELET COUNT,PLT 117 K/uL (130-375); RED BLOOD CELL COUNT 3.09 M/uL (4.14-5.76); WHITE BLOOD CELL COUNT,WBC 5.5 K/uL (3.2-11.0)
[2024-07-26 21:08] LABS: A/G RATIO 1.1 (1.2-2.2); ALANINE AMINOTRANSFERASE,ALT 19 U/L (12-78); ALBUMIN 3.3 g/dL (3.4-5.0); ALKALINE PHOSPHATASE 116 U/L (46-116); ANION GAP 15.3 mmol/L (5.0-14.0); ASPARTATE AMNIOTRANSFERASE,AST 18 U/L (15-37); BILIRUBIN TOTAL 0.3 mg/dL (0.2-1.0); BLOOD UREA NITROGEN,BUN 41 mg/dL (7-18); CALCIUM 8.9 mg/dL (8.5-10.1); CARBON DIOXIDE,CO2 22 mmol/L (21-32); CHLORIDE,CL 90 mmol/L (100-108); CREATININE 1.8 mg/dL (0.8-1.3); EST CRCL DRUG DOSING (CG) 45.54 mL/min; ESTIMATED GFR 40 mL/min (>60); GLUCOSE RANDOM 90 mg/dL (74-106); POTASSIUM,K 5.3 mmol/L (3.6-5.2); PROTEIN TOTAL,TP 6.4 g/dL (6.4-8.2); SODIUM,NA 122 mmol/L (140-148)
[2024-07-26] MEDS: Sodium Chloride 0.9% 1,000 ML IV SCH (23:33)
[2024-07-27] MEDS: Atropine 0.1 MG/ML 10 ML Syringe IVPUSH ONE (01:40)
[2024-07-27 04:15] LABS: CALCIUM 8.4 mg/dL (8.5-10.1); CREATININE 1.6 mg/dL (0.8-1.3); EST CRCL DRUG DOSING (CG) 51.24 mL/min; POTASSIUM,K 4.9 mmol/L (3.6-5.2)
[2024-07-27 04:16] LABS: ANION GAP 12.9 mmol/L (5.0-14.0)
== END 2024-07-27 04:00 | disposition other institution (70) ==
LOC: JP.ED 19:04
DX: E87.1 Hypo-osmolality and hyponatremia (principal); R00.1 Bradycardia, unspecified; I12.9 Hypertensive chronic kidney disease with stage 1 through stage 4 chronic kidney disease, or unspecified chronic kidney disease; N18.9 Chronic kidney disease, unspecified; J44.9 Chronic obstructive pulmonary disease, unspecified; F17.210 Nicotine dependence, cigarettes, uncomplicated; Z88.0 Allergy status to penicillin; Z79.899 Other long term (current) drug therapy; Z79.51 Long term (current) use of inhaled steroids; Z79.85 Long-term (current) use of injectable non-insulin antidiabetic drugs
CPT/HCPCS: 36415; 80048; 80053; 84484; 85025; 93005; 96360; 96361; 99285; J7030; 93010; 99284